=== PATIENT | male | born 1970 | race Caucasian/White ===

== ENCOUNTER 2018-01-11 09:00 | Inpatient (IN) | payer MEDICAID ==
[~2018-01-11] VITALS: Ht 177.8 cm; Wt 68.2 kg
[2018-01-11] MEDS ORDERED: ketorolac trometh. 30mg/ml inj. IV ONE (09:05)
[2018-01-11] MEDS ORDERED: normal saline 1000ML IV soln IVB ONE (09:05)
[2018-01-11 09:39] LABS: BASOPHILS # (AUTO) 0.1 X10'3 (0-0.2); BASOPHILS % (AUTO) 0.2 % (0-1); EOSINOPHILS # (AUTO) 0.1 X10'3 (0-0.9); EOSINOPHILS % (AUTO) 0.2 % (0-6); HEMATOCRIT 37.8 % (42.0-52.0); HEMOGLOBIN 12.9 g/dl (14.0-17.9); LYMPHOCYTES # (AUTO) 0.6 X10'3 (1.1-4.8); LYMPHOCYTES % (AUTO) 1.7 % (21-51); MEAN CORPUSCULAR HEMOGLOBIN 29.9 PG (27.0-31.0); MEAN CORPUSCULAR HGB CONC 34.3 % (33.0-36.5); MEAN CORPUSCULAR VOLUME 87.3 FL (78-98); MEAN PLATELET VOLUME 7.2 FL (7.4-10.4); MONOCYTES # (AUTO) 0.4 X10'3 (0-0.9); MONOCYTES % (AUTO) 1.4 % (2-12); NEUTROPHILS # (AUTO) 30.8 X10'3 (1.8-7.7); NEUTROPHILS % (AUTO) 96.5 % (42-75); PLATELET COUNT 354 X10'3 (140-440); RED BLOOD COUNT 4.33 X10'6 (4.70-6.10); RED CELL DISTRIBUTION WIDTH 15.1 % (11.5-14.5)
[2018-01-11] MEDS ORDERED: levoFLOXACIN-Levaquin 750MG/D5 150 ML IV ONE (09:50)
[2018-01-11] MEDS ORDERED: vancomycin/NS 1 GM ADD-VANTAGE 250 ML IV ONE (09:50)
[2018-01-11 09:53] LABS: INR 1.1 INR; PARTIAL THROMBOPLASTIN TIME 28 SECONDS (22-32); PROTHROMBIN TIME 11.4 SECONDS (9.0-12.0)
[2018-01-11 09:55] LABS: ANISOCYTOSIS 1+; PLATELET ESTIMATE NORMAL; TOTAL CELLS COUNTED 100
[2018-01-11 10:02] LABS: D-DIMER 2.15 MG/L FEU (0-0.50)
[2018-01-11 10:03] LABS: ALANINE AMINOTRANSFERASE 71 U/L (12-78); ALBUMIN 1.8 G/DL (3.4-5.0); ALBUMIN/GLOBULIN RATIO 0.3 (1.1-1.5); ALKALINE PHOSPHATASE 318 IU/L (46-116); ANION GAP 11 (8-16); ASPARTATE AMINO TRANSFERASE 58 U/L (10-37); BILIRUBIN,TOTAL 1.1 MG/DL (0.1-1.0); BLOOD UREA NITROGEN 12 MG/DL (7-18); BUN/CREATININE RATIO 13.5 (5.4-32.0); CHLORIDE 97 MMOL/L (99-107); CREATININE 0.89 MG/DL (0.60-1.10); GLUCOSE 96 MG/DL (70-104); MAGNESIUM 1.7 MG/DL (1.5-2.4); POTASSIUM 3.7 MMOL/L (3.5-5.1); SODIUM 135 MMOL/L (135-145); TOTAL CARBON DIOXIDE 26.9 MMOL/L (24-32); TOTAL PROTEIN 7.1 G/DL (6.4-8.2); eGFR > 90 ML/MIN
[2018-01-11] MEDS ORDERED: iohexol 350MG/ML 100ml bottle IV ONE (10:48)
[2018-01-11 11:14] LABS: URINE AMPHETAMINE SCREEN POSITIVE (Neg); URINE BARBITUATE SCREEN NEGATIVE (Neg); URINE BENZODIAZEPINES SCREEN NEGATIVE (Neg); URINE CANNABINOID SCREEN POSITIVE (Neg); URINE COCAINE SCREEN NEGATIVE (Neg); URINE METHADONE SCREEN NEGATIVE (Neg); URINE OPIATE SCREEN NEGATIVE (Neg); URINE PHENCYCLIDINE SCREEN NEGATIVE (Neg)
[2018-01-11] MEDS ORDERED: potassium Cl 20 mEq SR tablet PO PRN ×2 (11:35)
[2018-01-11] MEDS ORDERED: magnesium 4gm in 100ml NS 100 ML IV PRN (11:35)
[2018-01-11] MEDS ORDERED: potassium Cl 40MEQ/NS 500ml 500 ML IV PRN ×2 (11:35)
[2018-01-11] MEDS ORDERED: HYDROcodone/acetaminophen 5mg/325mg tablet PO PRN (11:35)
[2018-01-11] MEDS ORDERED: magnesium Cl slow-release 64mg tablet PO PRN (11:35)
[2018-01-11] MEDS ORDERED: magnesium hydroxide 30ml (MOM) UD suspension PO PRN (11:35)
[2018-01-11] MEDS ORDERED: mag hydrox/Alum hydrox/simeth 30ml oral suspension PO PRN (11:35)
[2018-01-11] MEDS ORDERED: ondansetron/PF 4mg/2ml inj IV PRN (11:35)
[2018-01-11] MEDS ORDERED: acetaminophen 325mg tablet PO PRN (11:35)
[2018-01-11] MEDS ORDERED: magnesium 2GM in 50ml NS 50 ML IV PRN (11:35)
[2018-01-11] MEDS ORDERED: bisacodyl 10mg suppository rectal RC PRN (11:35)
[2018-01-11] MEDS: ipratropium/albuterol 3ml nebule NEB SCH ×4 (12:04→23:30)
[2018-01-11] MEDS ORDERED: NO HOME MEDS (12:10)
[2018-01-11] MEDS ORDERED: LIDOcaine 1.5% w/epinephrine 1:200,000 5ml ampul IJ ONE (12:50)
[2018-01-11] MEDS: benzonatate 100mg capsule PO SCH ×2 (13:24→20:13)
[2018-01-11] MEDS: potassium Cl 20mEq in NS 1,000 ML IV SCH ×2 (15:52→21:33)
[2018-01-11] MEDS: HYDROcodone/acetaminophen 10/325mg tab PO PRN ×2 (18:09→23:43)
[2018-01-11 19:05] VITALS: BP 121/71
[2018-01-11] MEDS: vancomycin/NS 1 GM ADD-VANTAGE 250 ML IV SCH (20:13)
[2018-01-11] MEDS: docusate sod 100mg capsule PO SCH (20:14)
[2018-01-11] MEDS: lactobacillus rhamnosus 10,000 MMU CELLS/CAPSULE PO SCH (20:14)
[2018-01-12] VITALS: BP 107/73
[2018-01-12] MEDS: ipratropium/albuterol 3ml nebule NEB SCH ×5 (03:37→23:00)
[2018-01-12] MEDS: vancomycin/NS 1 GM ADD-VANTAGE 250 ML IV SCH (04:10)
[2018-01-12 05:31] LABS: BASOPHILS % (AUTO) 0 % (0-1); EOSINOPHILS # (AUTO) 0.2 X10'3 (0-0.9); EOSINOPHILS % (AUTO) 0.8 % (0-6); HEMATOCRIT 33.4 % (42.0-52.0); HEMOGLOBIN 11.5 g/dl (14.0-17.9); LYMPHOCYTES # (AUTO) 1.2 X10'3 (1.1-4.8); LYMPHOCYTES % (AUTO) 5.1 % (21-51); MEAN CORPUSCULAR HEMOGLOBIN 30.1 PG (27.0-31.0); MEAN CORPUSCULAR HGB CONC 34.4 % (33.0-36.5); MEAN CORPUSCULAR VOLUME 87.2 FL (78-98); MEAN PLATELET VOLUME 7.6 FL (7.4-10.4); MONOCYTES # (AUTO) 0.7 X10'3 (0-0.9); MONOCYTES % (AUTO) 3.1 % (2-12); NEUTROPHILS # (AUTO) 21.1 X10'3 (1.8-7.7); PLATELET COUNT 305 X10'3 (140-440); RED BLOOD COUNT 3.82 X10'6 (4.70-6.10); RED CELL DISTRIBUTION WIDTH 15.1 % (11.5-14.5); WHITE BLOOD COUNT 23.2 X10'3 (4.5-11.0)
[2018-01-12 05:39] LABS: ALANINE AMINOTRANSFERASE 53 U/L (12-78); ALBUMIN 1.5 G/DL (3.4-5.0); ALBUMIN/GLOBULIN RATIO 0.3 (1.1-1.5); ALKALINE PHOSPHATASE 273 IU/L (46-116); ANION GAP 8 (8-16); ASPARTATE AMINO TRANSFERASE 45 U/L (10-37); BILIRUBIN,TOTAL 0.8 MG/DL (0.1-1.0); BLOOD UREA NITROGEN 15 MG/DL (7-18); BUN/CREATININE RATIO 15.6 (5.4-32.0); CALCIUM 8.6 MG/DL (8.5-10.1); CHLORIDE 103 MMOL/L (99-107); CREATININE 0.96 MG/DL (0.60-1.10); GLUCOSE 116 MG/DL (70-104); POTASSIUM 3.7 MMOL/L (3.5-5.1); SODIUM 140 MMOL/L (135-145); TOTAL CARBON DIOXIDE 28.9 MMOL/L (24-32); TOTAL PROTEIN 6.4 G/DL (6.4-8.2); eGFR 84 ML/MIN
[2018-01-12 07:00] VITALS: BP 133/91
[2018-01-12] MEDS: K and/or MAG REPLACEMENT MC SCH (08:00)
[2018-01-12] MEDS: nicotine 14mg patch - 24hr TD SCH (08:00)
[2018-01-12] MEDS: lactobacillus rhamnosus 10,000 MMU CELLS/CAPSULE PO SCH ×2 (08:28→21:03)
[2018-01-12] MEDS: docusate sod 100mg capsule PO SCH ×2 (08:28→21:03)
[2018-01-12] MEDS: benzonatate 100mg capsule PO SCH ×3 (08:29→21:03)
[2018-01-12] MEDS: HYDROcodone/acetaminophen 10/325mg tab PO PRN ×3 (08:29→22:12)
[2018-01-12] MEDS: potassium Cl 20mEq in NS 1,000 ML IV SCH ×3 (08:30→21:04)
[2018-01-12] MEDS: enoxaparin 40mg/0.4ml syringe SUBCUT SCH (08:33)
[2018-01-12] MEDS: levoFLOXACIN-Levaquin 750MG/D5 150 ML IV SCH (08:37)
[2018-01-12 11:00] VITALS: BP 134/88
[2018-01-12] MEDS ORDERED: VANCOMYCIN LEVEL IV NR (11:30)
[2018-01-12] MEDS: vancomycin inj 1,250 MG in normal saline 250ml IV soln 250 ML IV SCH ×2 (13:45→21:06)
[2018-01-12 20:00] VITALS: BP 147/90
[2018-01-13] VITALS: BP 134/87
[2018-01-13] MEDS: ipratropium/albuterol 3ml nebule NEB SCH ×6 (03:00→23:00)
[2018-01-13] MEDS: HYDROcodone/acetaminophen 10/325mg tab PO PRN ×4 (03:13→19:26)
[2018-01-13] MEDS: vancomycin inj 1,250 MG in normal saline 250ml IV soln 250 ML IV SCH ×3 (05:13→23:09)
[2018-01-13 05:24] LABS: BASOPHILS # (AUTO) 0.1 X10'3 (0-0.2); BASOPHILS % (AUTO) 0.7 % (0-1); EOSINOPHILS # (AUTO) 0.3 X10'3 (0-0.9); EOSINOPHILS % (AUTO) 1.6 % (0-6); HEMATOCRIT 32.6 % (42.0-52.0); HEMOGLOBIN 11.2 g/dl (14.0-17.9); LYMPHOCYTES # (AUTO) 1.1 X10'3 (1.1-4.8); LYMPHOCYTES % (AUTO) 6.2 % (21-51); MEAN CORPUSCULAR HEMOGLOBIN 29.8 PG (27.0-31.0); MEAN CORPUSCULAR HGB CONC 34.3 % (33.0-36.5); MEAN CORPUSCULAR VOLUME 86.8 FL (78-98); MEAN PLATELET VOLUME 7.4 FL (7.4-10.4); MONOCYTES # (AUTO) 0.8 X10'3 (0-0.9); MONOCYTES % (AUTO) 4.8 % (2-12); NEUTROPHILS # (AUTO) 14.9 X10'3 (1.8-7.7); NEUTROPHILS % (AUTO) 86.7 % (42-75); PLATELET COUNT 404 X10'3 (140-440); RED BLOOD COUNT 3.76 X10'6 (4.70-6.10); RED CELL DISTRIBUTION WIDTH 15.5 % (11.5-14.5); WHITE BLOOD COUNT 17.1 X10'3 (4.5-11.0)
[2018-01-13 05:46] LABS: ALANINE AMINOTRANSFERASE 58 U/L (12-78); ALBUMIN 1.4 G/DL (3.4-5.0); ALBUMIN/GLOBULIN RATIO 0.3 (1.1-1.5); ALKALINE PHOSPHATASE 247 IU/L (46-116); ANION GAP 7 (8-16); ASPARTATE AMINO TRANSFERASE 53 U/L (10-37); BILIRUBIN,TOTAL 0.5 MG/DL (0.1-1.0); BLOOD UREA NITROGEN 17 MG/DL (7-18); BUN/CREATININE RATIO 18.5 (5.4-32.0); CALCIUM 8.4 MG/DL (8.5-10.1); CHLORIDE 104 MMOL/L (99-107); CREATININE 0.92 MG/DL (0.60-1.10); GLUCOSE 97 MG/DL (70-104); MAGNESIUM 1.9 MG/DL (1.5-2.4); POTASSIUM 4.1 MMOL/L (3.5-5.1); SODIUM 137 MMOL/L (135-145); TOTAL CARBON DIOXIDE 26.2 MMOL/L (24-32); eGFR 88 ML/MIN
[2018-01-13 07:00] VITALS: BP 142/95
[2018-01-13] MEDS: K and/or MAG REPLACEMENT MC SCH (08:00)
[2018-01-13] MEDS: nicotine 14mg patch - 24hr TD SCH (08:00)
[2018-01-13] MEDS: lactobacillus rhamnosus 10,000 MMU CELLS/CAPSULE PO SCH ×2 (09:23→19:26)
[2018-01-13] MEDS: benzonatate 100mg capsule PO SCH ×3 (09:23→23:09)
[2018-01-13] MEDS: docusate sod 100mg capsule PO SCH ×2 (09:24→19:26)
[2018-01-13] MEDS: levoFLOXACIN-Levaquin 750MG/D5 150 ML IV SCH (09:24)
[2018-01-13] MEDS: enoxaparin 40mg/0.4ml syringe SUBCUT SCH (09:25)
[2018-01-13] MEDS ORDERED: FLU VACC QS2017-18 36MOS UP/PF 60 MCG/0.5 ML SYRINGE IMVAC ONE (10:00)
[2018-01-13 11:08] VITALS: BP 144/83
[2018-01-13] MEDS ORDERED: VANCOMYCIN LEVEL IV NR (12:30)
[2018-01-13] MEDS: potassium Cl 20mEq in NS 1,000 ML IV SCH (13:23)
[2018-01-13 20:00] VITALS: BP 153/80
[2018-01-14] VITALS: BP 151/91
[2018-01-14] MEDS: HYDROcodone/acetaminophen 10/325mg tab PO PRN ×5 (00:37→21:10)
[2018-01-14] MEDS: potassium Cl 20mEq in NS 1,000 ML IV SCH ×3 (02:44→19:33)
[2018-01-14] MEDS: ipratropium/albuterol 3ml nebule NEB SCH (03:00)
[2018-01-14 05:28] LABS: BASOPHILS % (AUTO) 0.1 % (0-1); EOSINOPHILS # (AUTO) 0.4 X10'3 (0-0.9); EOSINOPHILS % (AUTO) 2.3 % (0-6); HEMATOCRIT 33.8 % (42.0-52.0); HEMOGLOBIN 11.8 g/dl (14.0-17.9); LYMPHOCYTES # (AUTO) 1.2 X10'3 (1.1-4.8); MEAN CORPUSCULAR HEMOGLOBIN 29.9 PG (27.0-31.0); MEAN CORPUSCULAR VOLUME 85.4 FL (78-98); MONOCYTES # (AUTO) 0.8 X10'3 (0-0.9); MONOCYTES % (AUTO) 4.9 % (2-12); NEUTROPHILS # (AUTO) 14.3 X10'3 (1.8-7.7); NEUTROPHILS % (AUTO) 85.7 % (42-75); PLATELET COUNT 478 X10'3 (140-440); RED BLOOD COUNT 3.96 X10'6 (4.70-6.10); RED CELL DISTRIBUTION WIDTH 14.9 % (11.5-14.5); WHITE BLOOD COUNT 16.7 X10'3 (4.5-11.0)
[2018-01-14] MEDS: vancomycin inj 1,250 MG in normal saline 250ml IV soln 250 ML IV SCH ×3 (05:36→21:11)
[2018-01-14 05:47] LABS: ALANINE AMINOTRANSFERASE 68 U/L (12-78); ALBUMIN 1.5 G/DL (3.4-5.0); ALBUMIN/GLOBULIN RATIO 0.3 (1.1-1.5); ALKALINE PHOSPHATASE 232 IU/L (46-116); ANION GAP 5 (8-16); ASPARTATE AMINO TRANSFERASE 55 U/L (10-37); BILIRUBIN,TOTAL 0.5 MG/DL (0.1-1.0); BLOOD UREA NITROGEN 11 MG/DL (7-18); BUN/CREATININE RATIO 13.1 (5.4-32.0); CALCIUM 8.6 MG/DL (8.5-10.1); CHLORIDE 105 MMOL/L (99-107); CREATININE 0.84 MG/DL (0.60-1.10); GLUCOSE 91 MG/DL (70-104); MAGNESIUM 2.1 MG/DL (1.5-2.4); POTASSIUM 4.2 MMOL/L (3.5-5.1); SODIUM 138 MMOL/L (135-145); TOTAL CARBON DIOXIDE 27.9 MMOL/L (24-32); TOTAL PROTEIN 6.2 G/DL (6.4-8.2); eGFR > 90 ML/MIN
[2018-01-14 07:00] VITALS: BP 151/90
[2018-01-14] MEDS: nicotine 14mg patch - 24hr TD SCH (08:00)
[2018-01-14] MEDS: K and/or MAG REPLACEMENT MC SCH (08:00)
[2018-01-14] MEDS: benzonatate 100mg capsule PO SCH ×3 (08:34→21:08)
[2018-01-14] MEDS: docusate sod 100mg capsule PO SCH ×2 (08:34→21:09)
[2018-01-14] MEDS: lactobacillus rhamnosus 10,000 MMU CELLS/CAPSULE PO SCH ×2 (08:34→21:08)
[2018-01-14] MEDS: enoxaparin 40mg/0.4ml syringe SUBCUT SCH (08:34)
[2018-01-14] MEDS: levoFLOXACIN-Levaquin 750MG/D5 150 ML IV SCH (08:34)
[2018-01-14] MEDS ORDERED: LORazepam 2 mg/ml vial IV PRN (09:30)
[2018-01-14] MEDS ORDERED: ipratropium/albuterol 3ml nebule NEB PRN (09:35)
[2018-01-14 11:00] VITALS: BP 125/78
[2018-01-14 20:00] VITALS: BP 125/81
[2018-01-15] VITALS: BP 136/79
[2018-01-15] MEDS: potassium Cl 20mEq in NS 1,000 ML IV SCH (05:43)
[2018-01-15] MEDS: vancomycin inj 1,250 MG in normal saline 250ml IV soln 250 ML IV SCH ×3 (05:43→21:11)
[2018-01-15] MEDS: HYDROcodone/acetaminophen 10/325mg tab PO PRN ×4 (05:43→21:15)
[2018-01-15 05:55] LABS: BASOPHILS % (AUTO) 0.2 % (0-1); EOSINOPHILS # (AUTO) 0.4 X10'3 (0-0.9); EOSINOPHILS % (AUTO) 3.4 % (0-6); HEMATOCRIT 38.1 % (42.0-52.0); LYMPHOCYTES # (AUTO) 1.1 X10'3 (1.1-4.8); LYMPHOCYTES % (AUTO) 9.3 % (21-51); MEAN CORPUSCULAR HEMOGLOBIN 29.5 PG (27.0-31.0); MEAN CORPUSCULAR HGB CONC 34.2 % (33.0-36.5); MEAN CORPUSCULAR VOLUME 86.3 FL (78-98); MEAN PLATELET VOLUME 6.9 FL (7.4-10.4); MONOCYTES # (AUTO) 0.7 X10'3 (0-0.9); MONOCYTES % (AUTO) 5.6 % (2-12); NEUTROPHILS # (AUTO) 9.8 X10'3 (1.8-7.7); NEUTROPHILS % (AUTO) 81.5 % (42-75); PLATELET COUNT 553 X10'3 (140-440); RED BLOOD COUNT 4.41 X10'6 (4.70-6.10); RED CELL DISTRIBUTION WIDTH 15.3 % (11.5-14.5); WHITE BLOOD COUNT 12.1 X10'3 (4.5-11.0)
[2018-01-15 06:16] LABS: ALANINE AMINOTRANSFERASE 66 U/L (12-78); ALBUMIN 1.7 G/DL (3.4-5.0); ALBUMIN/GLOBULIN RATIO 0.3 (1.1-1.5); ALKALINE PHOSPHATASE 208 IU/L (46-116); ANION GAP 6 (8-16); ASPARTATE AMINO TRANSFERASE 49 U/L (10-37); BILIRUBIN,TOTAL 0.4 MG/DL (0.1-1.0); BLOOD UREA NITROGEN 12 MG/DL (7-18); BUN/CREATININE RATIO 12.9 (5.4-32.0); CALCIUM 8.8 MG/DL (8.5-10.1); CHLORIDE 104 MMOL/L (99-107); CREATININE 0.93 MG/DL (0.60-1.10); GLUCOSE 86 MG/DL (70-104); MAGNESIUM 2.1 MG/DL (1.5-2.4); POTASSIUM 4.7 MMOL/L (3.5-5.1); SODIUM 139 MMOL/L (135-145); TOTAL CARBON DIOXIDE 29.1 MMOL/L (24-32); TOTAL PROTEIN 7.1 G/DL (6.4-8.2); eGFR 87 ML/MIN
[2018-01-15 07:06] VITALS: BP 122/79
[2018-01-15] MEDS: nicotine 14mg patch - 24hr TD SCH (08:00)
[2018-01-15] MEDS: K and/or MAG REPLACEMENT MC SCH (08:00)
[2018-01-15] MEDS: benzonatate 100mg capsule PO SCH ×3 (08:30→21:15)
[2018-01-15] MEDS: lactobacillus rhamnosus 10,000 MMU CELLS/CAPSULE PO SCH ×2 (08:30→21:15)
[2018-01-15] MEDS: levoFLOXACIN-Levaquin 750MG/D5 150 ML IV SCH (08:30)
[2018-01-15] MEDS: docusate sod 100mg capsule PO SCH ×2 (08:31→21:14)
[2018-01-15] MEDS: enoxaparin 40mg/0.4ml syringe SUBCUT SCH (08:31)
[2018-01-15 10:54] LABS: PLATELET ESTIMATE NORMAL; TOTAL CELLS COUNTED 100
[2018-01-15 11:07] VITALS: BP 126/76
[2018-01-15] MEDS ORDERED: LORazepam 0.5 MG tablet PO PRN (12:50)
[2018-01-15 20:00] VITALS: BP 148/82
[2018-01-16] VITALS: BP 121/70
[2018-01-16] MEDS: vancomycin inj 1,250 MG in normal saline 250ml IV soln 250 ML IV SCH ×3 (05:57→23:21)
[2018-01-16 06:03] LABS: BASOPHILS % (AUTO) 0.2 % (0-1); EOSINOPHILS # (AUTO) 0.5 X10'3 (0-0.9); EOSINOPHILS % (AUTO) 3.8 % (0-6); HEMATOCRIT 35.1 % (42.0-52.0); HEMOGLOBIN 12.1 g/dl (14.0-17.9); LYMPHOCYTES # (AUTO) 1.3 X10'3 (1.1-4.8); LYMPHOCYTES % (AUTO) 9.4 % (21-51); MEAN CORPUSCULAR HEMOGLOBIN 29.9 PG (27.0-31.0); MEAN CORPUSCULAR HGB CONC 34.4 % (33.0-36.5); MEAN CORPUSCULAR VOLUME 86.9 FL (78-98); MEAN PLATELET VOLUME 6.7 FL (7.4-10.4); MONOCYTES # (AUTO) 0.8 X10'3 (0-0.9); NEUTROPHILS % (AUTO) 80.6 % (42-75); PLATELET COUNT 622 X10'3 (140-440); RED BLOOD COUNT 4.03 X10'6 (4.70-6.10); RED CELL DISTRIBUTION WIDTH 15.3 % (11.5-14.5); WHITE BLOOD COUNT 13.6 X10'3 (4.5-11.0)
[2018-01-16 06:28] LABS: ALANINE AMINOTRANSFERASE 63 U/L (12-78); ALBUMIN 1.7 G/DL (3.4-5.0); ALBUMIN/GLOBULIN RATIO 0.3 (1.1-1.5); ALKALINE PHOSPHATASE 180 IU/L (46-116); ANION GAP 5 (8-16); ASPARTATE AMINO TRANSFERASE 43 U/L (10-37); BILIRUBIN,TOTAL 0.3 MG/DL (0.1-1.0); BLOOD UREA NITROGEN 13 MG/DL (7-18); BUN/CREATININE RATIO 13.5 (5.4-32.0); CALCIUM 8.7 MG/DL (8.5-10.1); CHLORIDE 104 MMOL/L (99-107); CREATININE 0.96 MG/DL (0.60-1.10); GLUCOSE 92 MG/DL (70-104); MAGNESIUM 2.3 MG/DL (1.5-2.4); POTASSIUM 4.4 MMOL/L (3.5-5.1); SODIUM 139 MMOL/L (135-145); TOTAL CARBON DIOXIDE 30.1 MMOL/L (24-32); TOTAL PROTEIN 6.6 G/DL (6.4-8.2); eGFR 84 ML/MIN
[2018-01-16 07:16] VITALS: BP 127/73
[2018-01-16] MEDS: nicotine 14mg patch - 24hr TD SCH (08:00)
[2018-01-16] MEDS: K and/or MAG REPLACEMENT MC SCH (08:00)
[2018-01-16 08:09] LABS: ANISOCYTOSIS 1+; PLATELET ESTIMATE INCREASED; TOTAL CELLS COUNTED 100
[2018-01-16] MEDS: enoxaparin 40mg/0.4ml syringe SUBCUT SCH (08:50)
[2018-01-16] MEDS: lactobacillus rhamnosus 10,000 MMU CELLS/CAPSULE PO SCH ×2 (08:50→19:33)
[2018-01-16] MEDS: docusate sod 100mg capsule PO SCH ×2 (08:50→19:33)
[2018-01-16] MEDS: benzonatate 100mg capsule PO SCH ×3 (08:50→23:21)
[2018-01-16] MEDS: levoFLOXACIN-Levaquin 750MG/D5 150 ML IV SCH (08:50)
[2018-01-16] MEDS: HYDROcodone/acetaminophen 10/325mg tab PO PRN ×4 (08:54→23:21)
[2018-01-16 11:55] VITALS: BP 109/64
[2018-01-16] MEDS: bisacodyl 10mg suppository rectal RC STA ×2 (12:45→12:57)
[2018-01-16 18:00] VITALS: BP 136/88
[2018-01-17] VITALS: BP 133/77
[2018-01-17] MEDS: vancomycin inj 1,250 MG in normal saline 250ml IV soln 250 ML IV SCH ×3 (05:16→21:03)
[2018-01-17] MEDS: HYDROcodone/acetaminophen 10/325mg tab PO PRN ×3 (05:20→21:03)
[2018-01-17 05:25] LABS: BASOPHILS % (AUTO) 0.2 % (0-1); EOSINOPHILS # (AUTO) 0.5 X10'3 (0-0.9); EOSINOPHILS % (AUTO) 4.3 % (0-6); HEMATOCRIT 37.8 % (42.0-52.0); HEMOGLOBIN 12.9 g/dl (14.0-17.9); LYMPHOCYTES # (AUTO) 1.3 X10'3 (1.1-4.8); MEAN CORPUSCULAR HEMOGLOBIN 29.6 PG (27.0-31.0); MEAN CORPUSCULAR HGB CONC 34.2 % (33.0-36.5); MEAN CORPUSCULAR VOLUME 86.6 FL (78-98); MEAN PLATELET VOLUME 6.6 FL (7.4-10.4); MONOCYTES # (AUTO) 0.7 X10'3 (0-0.9); NEUTROPHILS # (AUTO) 9.5 X10'3 (1.8-7.7); NEUTROPHILS % (AUTO) 78.5 % (42-75); PLATELET COUNT 732 X10'3 (140-440); RED BLOOD COUNT 4.37 X10'6 (4.70-6.10); RED CELL DISTRIBUTION WIDTH 15.3 % (11.5-14.5); WHITE BLOOD COUNT 12.1 X10'3 (4.5-11.0)
[2018-01-17 06:00] VITALS: BP 113/70
[2018-01-17 06:06] LABS: ALANINE AMINOTRANSFERASE 63 U/L (12-78); ALBUMIN/GLOBULIN RATIO 0.4 (1.1-1.5); ALKALINE PHOSPHATASE 184 IU/L (46-116); ANION GAP 8 (8-16); ASPARTATE AMINO TRANSFERASE 48 U/L (10-37); BILIRUBIN,TOTAL 0.4 MG/DL (0.1-1.0); BLOOD UREA NITROGEN 16 MG/DL (7-18); CALCIUM 9.2 MG/DL (8.5-10.1); CHLORIDE 102 MMOL/L (99-107); CREATININE 0.84 MG/DL (0.60-1.10); GLUCOSE 87 MG/DL (70-104); MAGNESIUM 2.4 MG/DL (1.5-2.4); POTASSIUM 4.8 MMOL/L (3.5-5.1); SODIUM 139 MMOL/L (135-145); TOTAL CARBON DIOXIDE 29.2 MMOL/L (24-32); TOTAL PROTEIN 7.4 G/DL (6.4-8.2); eGFR > 90 ML/MIN
[2018-01-17] MEDS: K and/or MAG REPLACEMENT MC SCH (08:00)
[2018-01-17] MEDS: nicotine 14mg patch - 24hr TD SCH (08:00)
[2018-01-17] MEDS: levoFLOXACIN-Levaquin 750MG/D5 150 ML IV SCH (08:43)
[2018-01-17] MEDS: docusate sod 100mg capsule PO SCH ×2 (08:43→21:03)
[2018-01-17] MEDS: lactobacillus rhamnosus 10,000 MMU CELLS/CAPSULE PO SCH ×2 (08:43→21:02)
[2018-01-17] MEDS: benzonatate 100mg capsule PO SCH ×3 (08:43→21:03)
[2018-01-17] MEDS: enoxaparin 40mg/0.4ml syringe SUBCUT SCH (08:44)
[2018-01-17 10:00] VITALS: BP 108/46
[2018-01-17 18:00] VITALS: BP 114/58
[2018-01-18] VITALS: BP 111/66
[2018-01-18] MEDS: vancomycin inj 1,250 MG in normal saline 250ml IV soln 250 ML IV SCH (04:51)
[2018-01-18 05:39] LABS: BASOPHILS % (AUTO) 0.3 % (0-1); EOSINOPHILS # (AUTO) 0.5 X10'3 (0-0.9); EOSINOPHILS % (AUTO) 4.5 % (0-6); HEMATOCRIT 37.3 % (42.0-52.0); HEMOGLOBIN 12.8 g/dl (14.0-17.9); LYMPHOCYTES # (AUTO) 1.5 X10'3 (1.1-4.8); LYMPHOCYTES % (AUTO) 13.1 % (21-51); MEAN CORPUSCULAR HEMOGLOBIN 29.9 PG (27.0-31.0); MEAN CORPUSCULAR HGB CONC 34.3 % (33.0-36.5); MEAN CORPUSCULAR VOLUME 87.2 FL (78-98); MEAN PLATELET VOLUME 6.5 FL (7.4-10.4); MONOCYTES # (AUTO) 0.8 X10'3 (0-0.9); MONOCYTES % (AUTO) 7.4 % (2-12); NEUTROPHILS # (AUTO) 8.3 X10'3 (1.8-7.7); NEUTROPHILS % (AUTO) 74.7 % (42-75); PLATELET COUNT 678 X10'3 (140-440); RED BLOOD COUNT 4.28 X10'6 (4.70-6.10); RED CELL DISTRIBUTION WIDTH 15.5 % (11.5-14.5); WHITE BLOOD COUNT 11.1 X10'3 (4.5-11.0)
[2018-01-18 05:59] LABS: ALANINE AMINOTRANSFERASE 57 U/L (12-78); ALBUMIN 2.1 G/DL (3.4-5.0); ALBUMIN/GLOBULIN RATIO 0.4 (1.1-1.5); ALKALINE PHOSPHATASE 162 IU/L (46-116); ANION GAP 7 (8-16); ASPARTATE AMINO TRANSFERASE 39 U/L (10-37); BILIRUBIN,TOTAL 0.3 MG/DL (0.1-1.0); BLOOD UREA NITROGEN 14 MG/DL (7-18); BUN/CREATININE RATIO 13.5 (5.4-32.0); CALCIUM 9.3 MG/DL (8.5-10.1); CHLORIDE 103 MMOL/L (99-107); CREATININE 1.04 MG/DL (0.60-1.10); GLUCOSE 94 MG/DL (70-104); MAGNESIUM 2.4 MG/DL (1.5-2.4); POTASSIUM 4.7 MMOL/L (3.5-5.1); SODIUM 138 MMOL/L (135-145); TOTAL CARBON DIOXIDE 28.4 MMOL/L (24-32); TOTAL PROTEIN 7.4 G/DL (6.4-8.2); eGFR 76 ML/MIN
[2018-01-18 07:00] VITALS: BP 125/78
[2018-01-18] MEDS: K and/or MAG REPLACEMENT MC SCH (08:00)
[2018-01-18] MEDS: nicotine 14mg patch - 24hr TD SCH (08:00)
[2018-01-18] MEDS: benzonatate 100mg capsule PO SCH ×2 (10:07→13:47)
[2018-01-18] MEDS: lactobacillus rhamnosus 10,000 MMU CELLS/CAPSULE PO SCH (10:07)
[2018-01-18] MEDS: enoxaparin 40mg/0.4ml syringe SUBCUT SCH (10:08)
[2018-01-18] MEDS: docusate sod 100mg capsule PO SCH (10:08)
[2018-01-18] MEDS: levoFLOXACIN-Levaquin 750MG/D5 150 ML IV SCH (10:09)
[2018-01-18] MEDS ORDERED: ACET1TAB12 PO (11:44)
[2018-01-18] MEDS ORDERED: LEVO500T2 PO (11:44)
[2018-01-18] MEDS ORDERED: ALBU8.5H8 IH (11:44)
[2018-01-18 12:00] VITALS: BP 125/70
== END 2018-01-18 14:40 | disposition home or self-care (01) | DRG 710 ==
LOC: ER 09:00 → ED HOLD 10:37 → EDBEDREQTM 18:23 → EDBEDREQ 18:23 → SUR 3N 19:01
PROVIDERS: ADMIT Internal Medicine; ATTEND Family Medicine
PROC: 0S9C0ZZ Drainage of Right Knee Joint, Open Approach (ICD-10-PCS; principal; 2018-01-11)
PROC: B3201ZZ Computerized Tomography (CT Scan) of Thoracic Aorta using Low Osmolar Contrast (ICD-10-PCS; 2018-01-11)
DX: A41.9 Sepsis, unspecified organism (principal); E43 Unspecified severe protein-calorie malnutrition; J13 Pneumonia due to Streptococcus pneumoniae; L03.115 Cellulitis of right lower limb; R06.03 Acute respiratory distress; L02.415 Cutaneous abscess of right lower limb; G89.29 Other chronic pain; M54.9 Dorsalgia, unspecified; F17.210 Nicotine dependence, cigarettes, uncomplicated; F15.10 Other stimulant abuse, uncomplicated; F12.90 Cannabis use, unspecified, uncomplicated; Z98.1 Arthrodesis status; Z56.0 Unemployment, unspecified; Z59.0 Homelessness; Z86.14 Personal history of Methicillin resistant Staphylococcus aureus infection; Z68.21 Body mass index [BMI] 21.0-21.9, adult; Z23 Encounter for immunization; Z71.6 Tobacco abuse counseling; Z71.51 Drug abuse counseling and surveillance of drug abuser
CPT/HCPCS: 36415; 71045; 71275; 80053; 80202; 80305; 83605; 83735; 83880; 84145; 84484; 85025; 85379; 85610; 85730; 87040; 87070; 87077; 87186; 93005; 93306; 94640; 94760; 96361; 96374; 99285; A4649; A6196; A6212; A6446; A6449; J1650; J1885; J1956; J3370; J3490; J7030; Q2037; Q9967

== ENCOUNTER 2018-05-16 14:27 | Inpatient (IN) | payer MEDICAID, OTHER ==
[~2018-05-16] VITALS: Ht 177.8 cm; Wt 62.0 kg
[~2018-05-16 14:27] MED LIST: ACET1TAB12 PO; ALBU8.5H8 IH; NO HOME MEDS
[2018-05-16 15:23] LABS: BASOPHILS % (AUTO) 0.1 % (0-1); EOSINOPHILS % (AUTO) 0.2 % (0-6); HEMATOCRIT 41.4 % (42.0-52.0); LYMPHOCYTES # (AUTO) 1.5 X10'3 (1.1-4.8); LYMPHOCYTES % (AUTO) 9.6 % (21-51); MEAN CORPUSCULAR HEMOGLOBIN 29.1 PG (27.0-31.0); MEAN CORPUSCULAR HGB CONC 33.8 % (33.0-36.5); MEAN CORPUSCULAR VOLUME 85.9 FL (78-98); MEAN PLATELET VOLUME 6.9 FL (7.4-10.4); MONOCYTES # (AUTO) 1.5 X10'3 (0-0.9); MONOCYTES % (AUTO) 9.2 % (2-12); NEUTROPHILS # (AUTO) 12.9 X10'3 (1.8-7.7); NEUTROPHILS % (AUTO) 80.9 % (42-75); PLATELET COUNT 324 X10'3 (140-440); RED BLOOD COUNT 4.82 X10'6 (4.70-6.10); RED CELL DISTRIBUTION WIDTH 13.7 % (11.5-14.5); WHITE BLOOD COUNT 15.9 X10'3 (4.5-11.0)
[2018-05-16 15:37] LABS: ALANINE AMINOTRANSFERASE 72 U/L (12-78); ALBUMIN 2.9 G/DL (3.4-5.0); ALBUMIN/GLOBULIN RATIO 0.6 (1.1-1.5); ALKALINE PHOSPHATASE 100 IU/L (46-116); ANION GAP 6 (8-16); ASPARTATE AMINO TRANSFERASE 33 U/L (10-37); BILIRUBIN,TOTAL 0.7 MG/DL (0.1-1.0); BLOOD UREA NITROGEN 7 MG/DL (7-18); BUN/CREATININE RATIO 6.7 (5.4-32.0); CALCIUM 9.3 MG/DL (8.5-10.1); CHLORIDE 98 MMOL/L (99-107); CREATININE 1.05 MG/DL (0.60-1.10); GLUCOSE 120 MG/DL (70-104); POTASSIUM 3.4 MMOL/L (3.5-5.1); SODIUM 134 MMOL/L (135-145); TOTAL CARBON DIOXIDE 30.5 MMOL/L (24-32); TOTAL PROTEIN 7.6 G/DL (6.4-8.2); eGFR 75 ML/MIN
[2018-05-16] MEDS ORDERED: HYDROcodone/acetaminophen 10/325mg tab PO ONE (15:40)
[2018-05-16] MEDS ORDERED: normal saline 1000ML IV soln IVB ONE (15:45)
[2018-05-16] MEDS ORDERED: vancomycin/NS 1 GM ADD-VANTAGE 250 ML IV ONE (16:40)
[2018-05-16] MEDS ORDERED: CefTRIAXone/D5W-Rocephin 1gm 50 ML IV ONE (16:40)
[2018-05-16] MEDS ORDERED: gadopentetate dimeglumine 7.5 MMOL/15 ML syringe ONE (17:38)
[2018-05-16] MEDS ORDERED: LIDOcaine 1% 30ml preserv. free vial IJ ONE (19:35)
[2018-05-16] MEDS: normal saline 1000ml 1,000 ML IV SCH (21:26)
[2018-05-16] MEDS ORDERED: ondansetron/PF 4mg/2ml inj IV PRN (21:30)
[2018-05-16] MEDS ORDERED: HYDROmorphone 1 mg/ml syringe IV PRN (21:30)
[2018-05-16] MEDS ORDERED: acetaminophen 325mg tablet PO PRN (21:30)
[2018-05-16] MEDS ORDERED: vancomycin/NS 1 GM ADD-VANTAGE 250 ML IV SCH (22:00)
[2018-05-16 23:30] VITALS: BP 157/92
[2018-05-16] MEDS: HYDROmorphone 1 mg/ml syringe IV PRN (23:30)
[2018-05-17 06:00] VITALS: BP 141/82
[2018-05-17 06:31] LABS: BASOPHILS # (AUTO) 0.2 X10'3 (0-0.2); BASOPHILS % (AUTO) 1.1 % (0-1); EOSINOPHILS # (AUTO) 0.1 X10'3 (0-0.9); EOSINOPHILS % (AUTO) 0.7 % (0-6); HEMATOCRIT 38.2 % (42.0-52.0); HEMOGLOBIN 13.3 g/dl (14.0-17.9); LYMPHOCYTES # (AUTO) 1.2 X10'3 (1.1-4.8); LYMPHOCYTES % (AUTO) 7.7 % (21-51); MEAN CORPUSCULAR HEMOGLOBIN 29.6 PG (27.0-31.0); MEAN CORPUSCULAR HGB CONC 34.7 % (33.0-36.5); MEAN CORPUSCULAR VOLUME 85.2 FL (78-98); MEAN PLATELET VOLUME 7.3 FL (7.4-10.4); MONOCYTES # (AUTO) 1.2 X10'3 (0-0.9); NEUTROPHILS # (AUTO) 12.8 X10'3 (1.8-7.7); NEUTROPHILS % (AUTO) 82.5 % (42-75); PLATELET COUNT 276 X10'3 (140-440); RED BLOOD COUNT 4.48 X10'6 (4.70-6.10); RED CELL DISTRIBUTION WIDTH 13.9 % (11.5-14.5); WHITE BLOOD COUNT 15.5 X10'3 (4.5-11.0)
[2018-05-17] MEDS: normal saline 1000ml 1,000 ML IV SCH ×3 (06:32→19:20)
[2018-05-17 06:59] LABS: ALANINE AMINOTRANSFERASE 67 U/L (12-78); ALBUMIN 2.5 G/DL (3.4-5.0); ALBUMIN/GLOBULIN RATIO 0.5 (1.1-1.5); ALKALINE PHOSPHATASE 99 IU/L (46-116); ANION GAP 5 (8-16); ASPARTATE AMINO TRANSFERASE 31 U/L (10-37); BILIRUBIN,TOTAL 0.5 MG/DL (0.1-1.0); BLOOD UREA NITROGEN 4 MG/DL (7-18); BUN/CREATININE RATIO 4.5 (5.4-32.0); CALCIUM 8.6 MG/DL (8.5-10.1); CHLORIDE 101 MMOL/L (99-107); CREATININE 0.89 MG/DL (0.60-1.10); GLUCOSE 111 MG/DL (70-104); POTASSIUM 3.8 MMOL/L (3.5-5.1); SODIUM 133 MMOL/L (135-145); TOTAL CARBON DIOXIDE 26.7 MMOL/L (24-32); TOTAL PROTEIN 7.1 G/DL (6.4-8.2); eGFR > 90 ML/MIN
[2018-05-17 07:50] VITALS: BP 141/82
[2018-05-17] MEDS ORDERED: vancomycin/NS 1 GM ADD-VANTAGE 250 ML IV SCH ×2 (08:00→16:00)
[2018-05-17] MEDS: CefTRIAXone 2gm/D5W 50ml 50 ML IV SCH (08:08)
[2018-05-17] MEDS ORDERED: LIDOcaine 1% (10mg/ml) 2ml vial ONE ×3 (09:39→10:08)
[2018-05-17 10:00] VITALS: BP 135/81
[2018-05-17] MEDS: HYDROmorphone 1 mg/ml syringe IV PRN (11:00)
[2018-05-17] MEDS ORDERED: iohexol 300mg/ml 100ml inj. ONE (11:23)
[2018-05-17] MEDS ORDERED: magnesium 1gm/100ml D5W IVPB 100 ML IV PRN (12:20)
[2018-05-17] MEDS ORDERED: potassium Cl 20 mEq SR tablet PO PRN ×2 (12:20)
[2018-05-17] MEDS ORDERED: magnesium 4gm in 100ml NS 100 ML IV PRN (12:20)
[2018-05-17] MEDS ORDERED: magnesium Cl slow-release 64mg tablet PO PRN (12:20)
[2018-05-17] MEDS ORDERED: potassium Cl 40MEQ/NS 500ml 500 ML IV PRN ×2 (12:20)
[2018-05-17] MEDS ORDERED: morphine 2 MG/ML inj. syringe IV PRN (12:20)
[2018-05-17] MEDS: vancomycin/NS 1 GM ADD-VANTAGE 250 ML IV SCH ×2 (16:18→23:27)
[2018-05-17 18:00] VITALS: BP 161/95
[2018-05-17 18:31] LABS: URINE AMPHETAMINE SCREEN POSITIVE (Neg); URINE BARBITUATE SCREEN NEGATIVE (Neg); URINE BENZODIAZEPINES SCREEN NEGATIVE (Neg); URINE CANNABINOID SCREEN NEGATIVE (Neg); URINE COCAINE SCREEN NEGATIVE (Neg); URINE METHADONE SCREEN NEGATIVE (Neg); URINE OPIATE SCREEN POSITIVE (Neg); URINE PHENCYCLIDINE SCREEN NEGATIVE (Neg)
[2018-05-17] MEDS: HYDROcodone/acetaminophen 10/325mg tab PO PRN (19:23)
[2018-05-17] MEDS: lactobacillus rhamnosus 10,000 MMU CELLS/CAPSULE PO SCH (20:00)
[2018-05-17 22:00] VITALS: BP 110/62
[2018-05-18 05:00] VITALS: BP 165/93
[2018-05-18] MEDS ORDERED: VANCOMYCIN LEVEL IV NR (07:30)
[2018-05-18] MEDS: enoxaparin 40mg/0.4ml syringe SUBCUT SCH (08:00)
[2018-05-18 08:09] LABS: BASOPHILS % (AUTO) 0.3 % (0-1); EOSINOPHILS # (AUTO) 0.1 X10'3 (0-0.9); EOSINOPHILS % (AUTO) 1.1 % (0-6); HEMATOCRIT 42.8 % (42.0-52.0); HEMOGLOBIN 14.6 g/dl (14.0-17.9); LYMPHOCYTES # (AUTO) 0.9 X10'3 (1.1-4.8); LYMPHOCYTES % (AUTO) 7.3 % (21-51); MEAN CORPUSCULAR HEMOGLOBIN 28.9 PG (27.0-31.0); MEAN CORPUSCULAR VOLUME 84.9 FL (78-98); MEAN PLATELET VOLUME 6.6 FL (7.4-10.4); MONOCYTES # (AUTO) 0.9 X10'3 (0-0.9); MONOCYTES % (AUTO) 6.9 % (2-12); NEUTROPHILS # (AUTO) 10.9 X10'3 (1.8-7.7); NEUTROPHILS % (AUTO) 84.4 % (42-75); PLATELET COUNT 333 X10'3 (140-440); RED BLOOD COUNT 5.04 X10'6 (4.70-6.10); RED CELL DISTRIBUTION WIDTH 13.9 % (11.5-14.5); WHITE BLOOD COUNT 12.9 X10'3 (4.5-11.0)
[2018-05-18 08:23] LABS: ALANINE AMINOTRANSFERASE 60 U/L (12-78); ALBUMIN 2.5 G/DL (3.4-5.0); ALBUMIN/GLOBULIN RATIO 0.5 (1.1-1.5); ALKALINE PHOSPHATASE 106 IU/L (46-116); ANION GAP 9 (8-16); ASPARTATE AMINO TRANSFERASE 33 U/L (10-37); BILIRUBIN,TOTAL 0.5 MG/DL (0.1-1.0); BLOOD UREA NITROGEN 6 MG/DL (7-18); BUN/CREATININE RATIO 7.9 (5.4-32.0); CHLORIDE 99 MMOL/L (99-107); CREATININE 0.76 MG/DL (0.60-1.10); GLUCOSE 127 MG/DL (70-104); MAGNESIUM 1.9 MG/DL (1.5-2.4); SODIUM 134 MMOL/L (135-145); TOTAL CARBON DIOXIDE 26.5 MMOL/L (24-32); TOTAL PROTEIN 7.5 G/DL (6.4-8.2); VANCOMYCIN,TROUGH 9.8 UG/ML (6.0-14.0); eGFR > 90 ML/MIN
[2018-05-18] MEDS: lactobacillus rhamnosus 10,000 MMU CELLS/CAPSULE PO SCH ×2 (08:42→20:01)
[2018-05-18] MEDS: CefTRIAXone 2gm/D5W 50ml 50 ML IV SCH (08:43)
[2018-05-18] MEDS: HYDROcodone/acetaminophen 10/325mg tab PO PRN ×2 (08:50→18:32)
[2018-05-18 10:00] VITALS: BP 157/95
[2018-05-18] MEDS: vancomycin inj 1,250 MG in normal saline 250ml IV soln 250 ML IV SCH ×2 (10:29→18:28)
[2018-05-18] MEDS: normal saline 1000ml 1,000 ML IV SCH ×2 (13:26→18:29)
[2018-05-18] MEDS: clindamycin 600mg/D5W 50ml 50 ML IV SCH ×2 (14:22→20:01)
[2018-05-18] MEDS ORDERED: amLODIPine 5mg tablet PO ONE (14:55)
[2018-05-18 18:00] VITALS: BP 160/103
[2018-05-18 22:00] VITALS: BP 147/83
[2018-05-19] MEDS: vancomycin inj 1,250 MG in normal saline 250ml IV soln 250 ML IV SCH ×3 (00:12→19:31)
[2018-05-19] MEDS: clindamycin 600mg/D5W 50ml 50 ML IV SCH ×2 (02:17→08:04)
[2018-05-19] MEDS: normal saline 1000ml 1,000 ML IV SCH ×2 (02:17→19:35)
[2018-05-19 05:00] VITALS: BP 124/81
[2018-05-19 06:18] LABS: BASOPHILS % (AUTO) 0.3 % (0-1); EOSINOPHILS # (AUTO) 0.4 X10'3 (0-0.9); EOSINOPHILS % (AUTO) 3.1 % (0-6); HEMATOCRIT 42.7 % (42.0-52.0); HEMOGLOBIN 14.4 g/dl (14.0-17.9); LYMPHOCYTES # (AUTO) 1.2 X10'3 (1.1-4.8); LYMPHOCYTES % (AUTO) 10.1 % (21-51); MEAN CORPUSCULAR HEMOGLOBIN 28.7 PG (27.0-31.0); MEAN CORPUSCULAR HGB CONC 33.8 % (33.0-36.5); MEAN CORPUSCULAR VOLUME 84.7 FL (78-98); MEAN PLATELET VOLUME 7.2 FL (7.4-10.4); MONOCYTES # (AUTO) 1.2 X10'3 (0-0.9); MONOCYTES % (AUTO) 9.5 % (2-12); NEUTROPHILS # (AUTO) 9.5 X10'3 (1.8-7.7); PLATELET COUNT 341 X10'3 (140-440); RED BLOOD COUNT 5.04 X10'6 (4.70-6.10); RED CELL DISTRIBUTION WIDTH 13.6 % (11.5-14.5); WHITE BLOOD COUNT 12.3 X10'3 (4.5-11.0)
[2018-05-19 06:19] LABS: ALANINE AMINOTRANSFERASE 54 U/L (12-78); ALBUMIN 2.3 G/DL (3.4-5.0); ALBUMIN/GLOBULIN RATIO 0.5 (1.1-1.5); ALKALINE PHOSPHATASE 104 IU/L (46-116); ANION GAP 8 (8-16); ASPARTATE AMINO TRANSFERASE 33 U/L (10-37); BILIRUBIN,TOTAL 0.3 MG/DL (0.1-1.0); BLOOD UREA NITROGEN 12 MG/DL (7-18); CHLORIDE 101 MMOL/L (99-107); GLUCOSE 100 MG/DL (70-104); MAGNESIUM 2.1 MG/DL (1.5-2.4); POTASSIUM 4.2 MMOL/L (3.5-5.1); SODIUM 136 MMOL/L (135-145); TOTAL CARBON DIOXIDE 27.3 MMOL/L (24-32); TOTAL PROTEIN 7.2 G/DL (6.4-8.2); eGFR > 90 ML/MIN
[2018-05-19] MEDS: amLODIPine 5mg tablet PO SCH (08:00)
[2018-05-19] MEDS: enoxaparin 40mg/0.4ml syringe SUBCUT SCH (08:00)
[2018-05-19] MEDS: lactobacillus rhamnosus 10,000 MMU CELLS/CAPSULE PO SCH ×2 (08:04→19:31)
[2018-05-19] MEDS ORDERED: VANCOMYCIN LEVEL IV NR (08:30)
[2018-05-19] MEDS: CefTRIAXone 2gm/D5W 50ml 50 ML IV SCH (08:58)
[2018-05-19] MEDS: HYDROcodone/acetaminophen 10/325mg tab PO PRN (08:58)
[2018-05-19] MEDS ORDERED: vancomycin inj 1,250 MG in normal saline 250ml IV soln 250 ML IV SCH (17:51)
[2018-05-19 18:00] VITALS: BP 134/82
[2018-05-19 22:00] VITALS: BP 139/81
[2018-05-20] MEDS: vancomycin inj 1,250 MG in normal saline 250ml IV soln 250 ML IV SCH ×3 (03:04→19:36)
[2018-05-20] MEDS: HYDROcodone/acetaminophen 10/325mg tab PO PRN ×2 (03:07→12:17)
[2018-05-20 05:00] VITALS: BP 159/85
[2018-05-20 05:22] LABS: BASOPHILS # (AUTO) 0.1 X10'3 (0-0.2); BASOPHILS % (AUTO) 0.5 % (0-1); EOSINOPHILS # (AUTO) 0.6 X10'3 (0-0.9); EOSINOPHILS % (AUTO) 4.8 % (0-6); HEMOGLOBIN 14.5 g/dl (14.0-17.9); LYMPHOCYTES # (AUTO) 1.4 X10'3 (1.1-4.8); LYMPHOCYTES % (AUTO) 11.9 % (21-51); MEAN CORPUSCULAR HEMOGLOBIN 28.8 PG (27.0-31.0); MEAN CORPUSCULAR HGB CONC 33.7 % (33.0-36.5); MEAN CORPUSCULAR VOLUME 85.4 FL (78-98); MEAN PLATELET VOLUME 6.9 FL (7.4-10.4); MONOCYTES # (AUTO) 0.9 X10'3 (0-0.9); MONOCYTES % (AUTO) 8.1 % (2-12); NEUTROPHILS # (AUTO) 8.5 X10'3 (1.8-7.7); NEUTROPHILS % (AUTO) 74.7 % (42-75); PLATELET COUNT 354 X10'3 (140-440); RED BLOOD COUNT 5.03 X10'6 (4.70-6.10); RED CELL DISTRIBUTION WIDTH 13.9 % (11.5-14.5); WHITE BLOOD COUNT 11.4 X10'3 (4.5-11.0)
[2018-05-20] MEDS: normal saline 1000ml 1,000 ML IV SCH ×2 (05:26→19:36)
[2018-05-20 05:43] LABS: ALANINE AMINOTRANSFERASE 58 U/L (12-78); ALBUMIN 2.4 G/DL (3.4-5.0); ALBUMIN/GLOBULIN RATIO 0.5 (1.1-1.5); ALKALINE PHOSPHATASE 108 IU/L (46-116); ANION GAP 6 (8-16); ASPARTATE AMINO TRANSFERASE 37 U/L (10-37); BILIRUBIN,TOTAL 0.2 MG/DL (0.1-1.0); BLOOD UREA NITROGEN 11 MG/DL (7-18); BUN/CREATININE RATIO 11.8 (5.4-32.0); CALCIUM 9.3 MG/DL (8.5-10.1); CHLORIDE 103 MMOL/L (99-107); CREATININE 0.93 MG/DL (0.60-1.10); MAGNESIUM 2.1 MG/DL (1.5-2.4); POTASSIUM 4.1 MMOL/L (3.5-5.1); SODIUM 135 MMOL/L (135-145); TOTAL CARBON DIOXIDE 25.7 MMOL/L (24-32); TOTAL PROTEIN 7.3 G/DL (6.4-8.2); eGFR 87 ML/MIN
[2018-05-20 05:48] LABS: GLUCOSE 104 MG/DL (70-104)
[2018-05-20 07:34] VITALS: BP 146/96
[2018-05-20] MEDS: amLODIPine 5mg tablet PO SCH (07:36)
[2018-05-20] MEDS: lactobacillus rhamnosus 10,000 MMU CELLS/CAPSULE PO SCH ×2 (07:36→19:36)
[2018-05-20] MEDS: enoxaparin 40mg/0.4ml syringe SUBCUT SCH (07:36)
[2018-05-20 10:00] VITALS: BP 136/84
[2018-05-20 18:00] VITALS: BP 118/84
[2018-05-20 22:38] VITALS: BP 134/84
[2018-05-21] MEDS: vancomycin inj 1,250 MG in normal saline 250ml IV soln 250 ML IV SCH ×3 (04:01→19:22)
[2018-05-21 05:44] LABS: BASOPHILS # (AUTO) 0.1 X10'3 (0-0.2); BASOPHILS % (AUTO) 0.8 % (0-1); EOSINOPHILS # (AUTO) 0.5 X10'3 (0-0.9); EOSINOPHILS % (AUTO) 6.1 % (0-6); HEMATOCRIT 44.1 % (42.0-52.0); HEMOGLOBIN 14.9 g/dl (14.0-17.9); LYMPHOCYTES # (AUTO) 1.5 X10'3 (1.1-4.8); LYMPHOCYTES % (AUTO) 16.9 % (21-51); MEAN CORPUSCULAR HEMOGLOBIN 28.9 PG (27.0-31.0); MEAN CORPUSCULAR HGB CONC 33.9 % (33.0-36.5); MEAN CORPUSCULAR VOLUME 85.2 FL (78-98); MEAN PLATELET VOLUME 6.6 FL (7.4-10.4); MONOCYTES # (AUTO) 0.7 X10'3 (0-0.9); MONOCYTES % (AUTO) 8.4 % (2-12); NEUTROPHILS # (AUTO) 5.8 X10'3 (1.8-7.7); NEUTROPHILS % (AUTO) 67.8 % (42-75); PLATELET COUNT 383 X10'3 (140-440); RED BLOOD COUNT 5.18 X10'6 (4.70-6.10); RED CELL DISTRIBUTION WIDTH 13.8 % (11.5-14.5); WHITE BLOOD COUNT 8.6 X10'3 (4.5-11.0)
[2018-05-21 06:02] LABS: ALANINE AMINOTRANSFERASE 73 U/L (12-78); ALBUMIN 2.5 G/DL (3.4-5.0); ALBUMIN/GLOBULIN RATIO 0.5 (1.1-1.5); ALKALINE PHOSPHATASE 98 IU/L (46-116); ANION GAP 6 (8-16); ASPARTATE AMINO TRANSFERASE 50 U/L (10-37); BILIRUBIN,TOTAL 0.3 MG/DL (0.1-1.0); BLOOD UREA NITROGEN 9 MG/DL (7-18); BUN/CREATININE RATIO 9.8 (5.4-32.0); CALCIUM 9.3 MG/DL (8.5-10.1); CHLORIDE 103 MMOL/L (99-107); CREATININE 0.92 MG/DL (0.60-1.10); GLUCOSE 95 MG/DL (70-104); MAGNESIUM 2.1 MG/DL (1.5-2.4); POTASSIUM 4.6 MMOL/L (3.5-5.1); SODIUM 136 MMOL/L (135-145); TOTAL CARBON DIOXIDE 26.7 MMOL/L (24-32); TOTAL PROTEIN 7.4 G/DL (6.4-8.2); eGFR 88 ML/MIN
[2018-05-21 06:11] VITALS: BP 149/95
[2018-05-21] MEDS: enoxaparin 40mg/0.4ml syringe SUBCUT SCH (07:21)
[2018-05-21] MEDS: lactobacillus rhamnosus 10,000 MMU CELLS/CAPSULE PO SCH ×2 (07:21→19:21)
[2018-05-21] MEDS: amLODIPine 5mg tablet PO SCH (07:21)
[2018-05-21 10:10] VITALS: BP 131/84
[2018-05-21] MEDS: HYDROcodone/acetaminophen 10/325mg tab PO PRN (13:15)
[2018-05-21] MEDS: normal saline 1000ml 1,000 ML IV SCH (16:45)
[2018-05-21 18:00] VITALS: BP 117/63
[2018-05-21 22:00] VITALS: BP 121/64
[2018-05-22] MEDS: vancomycin inj 1,250 MG in normal saline 250ml IV soln 250 ML IV SCH ×3 (03:45→20:11)
[2018-05-22 06:00] VITALS: BP 148/95
[2018-05-22] MEDS: enoxaparin 40mg/0.4ml syringe SUBCUT SCH (08:05)
[2018-05-22] MEDS: lactobacillus rhamnosus 10,000 MMU CELLS/CAPSULE PO SCH ×2 (08:05→20:11)
[2018-05-22] MEDS: amLODIPine 5mg tablet PO SCH (08:05)
[2018-05-22 10:00] VITALS: BP 126/72
[2018-05-22] MEDS: normal saline 1000ml 1,000 ML IV SCH (12:21)
[2018-05-22 16:00] LABS: HSV 1 PCR Positive (Negative); HSV 2 PCR Negative (Negative)
[2018-05-22 18:00] VITALS: BP 129/85
[2018-05-22] MEDS ORDERED: valacyclovir 500mg tablet PO SCH (20:00)
[2018-05-23] MEDS: valacyclovir 500mg tablet PO SCH ×4 (02:38→19:11)
[2018-05-23] MEDS: vancomycin inj 1,250 MG in normal saline 250ml IV soln 250 ML IV SCH ×3 (03:55→19:11)
[2018-05-23 06:00] VITALS: BP 132/82
[2018-05-23] MEDS: amLODIPine 5mg tablet PO SCH (08:06)
[2018-05-23] MEDS: lactobacillus rhamnosus 10,000 MMU CELLS/CAPSULE PO SCH ×2 (08:06→19:11)
[2018-05-23] MEDS: enoxaparin 40mg/0.4ml syringe SUBCUT SCH (08:07)
[2018-05-23] MEDS: normal saline 1000ml 1,000 ML IV SCH (09:36)
[2018-05-23 10:00] VITALS: BP 107/61
[2018-05-23 18:00] VITALS: BP 105/66
[2018-05-23 18:56] VITALS: BP 107/61
[2018-05-23 22:00] VITALS: BP 132/72
[2018-05-24] MEDS: vancomycin inj 1,250 MG in normal saline 250ml IV soln 250 ML IV SCH ×3 (05:06→19:21)
[2018-05-24 06:00] VITALS: BP 127/83
[2018-05-24] MEDS: normal saline 1000ml 1,000 ML IV SCH ×2 (08:01→19:31)
[2018-05-24] MEDS: amLODIPine 5mg tablet PO SCH (09:12)
[2018-05-24] MEDS: lactobacillus rhamnosus 10,000 MMU CELLS/CAPSULE PO SCH ×2 (09:12→19:21)
[2018-05-24] MEDS: valacyclovir 500mg tablet PO SCH ×2 (09:12→19:21)
[2018-05-24] MEDS: enoxaparin 40mg/0.4ml syringe SUBCUT SCH (09:13)
[2018-05-24 10:00] VITALS: BP 142/77
[2018-05-24 18:00] VITALS: BP 131/77
[2018-05-24 22:00] VITALS: BP 114/61
[2018-05-25] MEDS: vancomycin inj 1,250 MG in normal saline 250ml IV soln 250 ML IV SCH ×3 (04:00→19:41)
[2018-05-25 06:00] VITALS: BP 137/91
[2018-05-25] MEDS: amLODIPine 5mg tablet PO SCH (09:33)
[2018-05-25] MEDS: valacyclovir 500mg tablet PO SCH ×2 (09:33→19:41)
[2018-05-25] MEDS: lactobacillus rhamnosus 10,000 MMU CELLS/CAPSULE PO SCH ×2 (09:33→19:41)
[2018-05-25] MEDS: enoxaparin 40mg/0.4ml syringe SUBCUT SCH (09:34)
[2018-05-25 10:00] VITALS: BP 125/65
[2018-05-25 17:00] VITALS: BP 130/75
[2018-05-25] MEDS: mupirocin 2% nasal ointment 1gm UD NS SCH (19:41)
[2018-05-25] MEDS: normal saline 1000ml 1,000 ML IV SCH (19:42)
[2018-05-25] MEDS ORDERED: mupirocin 2% ointment 22GM TP SCH (20:00)
[2018-05-25 22:00] VITALS: BP 131/78
[2018-05-26] MEDS: vancomycin inj 1,250 MG in normal saline 250ml IV soln 250 ML IV SCH ×3 (03:19→19:55)
[2018-05-26 06:00] VITALS: BP 103/56
[2018-05-26] MEDS: amLODIPine 5mg tablet PO SCH (08:00)
[2018-05-26] MEDS: lactobacillus rhamnosus 10,000 MMU CELLS/CAPSULE PO SCH ×2 (08:01→19:55)
[2018-05-26] MEDS: nicotine 14mg patch - 24hr TD SCH (08:01)
[2018-05-26] MEDS: valacyclovir 500mg tablet PO SCH ×2 (08:01→19:55)
[2018-05-26] MEDS: mupirocin 2% nasal ointment 1gm UD NS SCH ×2 (08:01→19:55)
[2018-05-26] MEDS: enoxaparin 40mg/0.4ml syringe SUBCUT SCH (08:02)
[2018-05-26 10:00] VITALS: BP 109/71
[2018-05-26 18:00] VITALS: BP 116/74
[2018-05-26] MEDS ORDERED: VANCOMYCIN LEVEL IV ONE (19:30)
[2018-05-26 22:00] VITALS: BP 129/71
[2018-05-27] MEDS: vancomycin inj 1,250 MG in normal saline 250ml IV soln 250 ML IV SCH ×2 (03:32→12:39)
[2018-05-27 06:00] VITALS: BP 115/64
[2018-05-27] MEDS: lactobacillus rhamnosus 10,000 MMU CELLS/CAPSULE PO SCH (07:24)
[2018-05-27] MEDS: valacyclovir 500mg tablet PO SCH (07:24)
[2018-05-27] MEDS: nicotine 14mg patch - 24hr TD SCH (07:24)
[2018-05-27] MEDS: amLODIPine 5mg tablet PO SCH (07:24)
[2018-05-27] MEDS: enoxaparin 40mg/0.4ml syringe SUBCUT SCH (07:25)
[2018-05-27] MEDS: mupirocin 2% nasal ointment 1gm UD NS SCH (07:25)
[2018-05-27 10:00] VITALS: BP 123/76
[2018-05-27] MEDS ORDERED: AMLO5TAB16 PO (16:06)
[2018-05-27] MEDS ORDERED: VALA500T37 PO (16:06)
[2018-05-27] MEDS ORDERED: CLIN300C85 PO (16:06)
[2018-05-27] MEDS ORDERED: NICO-631 TD (16:06)
== END 2018-05-27 17:11 | disposition home or self-care (01) | DRG 710 ==
LOC: ER 14:28 → ED HOLD 21:26 → ORTHO 4S 22:56
PROVIDERS: ADMIT Internal Medicine; ATTEND Family Medicine
PROC: 0J9K0ZZ Drainage of Left Hand Subcutaneous Tissue and Fascia, Open Approach (ICD-10-PCS; principal; 2018-05-17)
DX: A41.02 Sepsis due to Methicillin resistant Staphylococcus aureus (principal); E44.1 Mild protein-calorie malnutrition; L03.211 Cellulitis of face; L02.512 Cutaneous abscess of left hand; I10 Essential (primary) hypertension; F19.10 Other psychoactive substance abuse, uncomplicated; K13.0 Diseases of lips; L03.114 Cellulitis of left upper limb; F15.10 Other stimulant abuse, uncomplicated; M54.9 Dorsalgia, unspecified; F17.200 Nicotine dependence, unspecified, uncomplicated; F12.10 Cannabis abuse, uncomplicated; Z60.2 Problems related to living alone; Z56.0 Unemployment, unspecified; Z59.0 Homelessness; Z68.1 Body mass index [BMI] 19.9 or less, adult; Z22.322 Carrier or suspected carrier of Methicillin resistant Staphylococcus aureus
CPT/HCPCS: 36415; 70487; 73140; 73220; 80053; 80202; 80305; 83735; 85025; 87040; 87070; 87077; 87186; 87529; 93306; 96365; 96366; 96368; 99285; A4649; A6196; A6222; A6223; A6255; A6446; A6449; A9579; J0696; J1170; J1650; J3370; J3490; J7030; Q9967

== ENCOUNTER 2018-10-04 20:43 | Emergency (ER) | payer MEDICAID, OTHER ==
[~2018-10-04] VITALS: Ht 175.3 cm; Wt 69.7 kg
[~2018-10-04 20:43] MED LIST changes: -ACET1TAB12 PO; -ALBU8.5H8 IH; +AMLO5TAB16 PO; +CLIN300C85 PO; +NICO-631 TD; -NO HOME MEDS; +VALA500T37 PO
[2018-10-04 21:09] VITALS: BP 138/78
[2018-10-04] MEDS ORDERED: DOXYCYCLINE 100MG CAPSULE PO STA (21:26)
[2018-10-04] MEDS ORDERED: ketorolac trometh inj. 60 MG/2 ML VIAL IM ONE (21:30)
[2018-10-04] MEDS ORDERED: cephalexin 250mg capsule PO ONE (21:30)
[2018-10-04] MEDS ORDERED: morphine 4 MG/ML inj SYRINge IM ONE (21:30)
[2018-10-04] MEDS ORDERED: ondansetron 4mg rapidly disintigrating tab PO ONE (21:30)
[2018-10-04] MEDS ORDERED: CEPH250T PO (22:43)
[2018-10-04] MEDS ORDERED: DOXY100C43 PO (22:43)
== END 2018-10-04 23:00 | disposition home or self-care (01) ==
LOC: ER 20:44
DX: L02.01 Cutaneous abscess of face (principal); F12.10 Cannabis abuse, uncomplicated; F15.10 Other stimulant abuse, uncomplicated; Z59.0 Homelessness; Z56.0 Unemployment, unspecified; Z79.899 Other long term (current) drug therapy
CPT/HCPCS: 10060; 87070; 87077; 87186; 96372; 99284; J1885; J2270

== ENCOUNTER 2019-05-17 13:55 | Emergency (ER) | payer MEDICAID, OTHER ==
[~2019-05-17] VITALS: Ht 177.8 cm; Wt 65.0 kg
[~2019-05-17 13:55] MED LIST changes: +CLIN-96 PO; -CLIN300C85 PO
[2019-05-17 13:57] VITALS: BP 134/82
[2019-05-17] MEDS ORDERED: TETanus/Pertussis (Acell)/Diphther VAC/PF (Tdap-Adult) 0.5ml syringe IM ONE (15:20)
[2019-05-17] MEDS ORDERED: LIDOcaine 1% w/epiNEPHrine 1:200,000 30ml vial IM ONE (15:20)
[2019-05-17] MEDS ORDERED: CEPH-571 PO (16:17)
[2019-05-17] MEDS ORDERED: IBUP-1984 PO (16:17)
--- NOTE | 2019-05-17 16:37 | NUR ---
catheterization laboratory technician dressed wound to rt hand and left finger with nonadherent and coban, gave pt dressings for home
== END 2019-05-17 16:38 | disposition home or self-care (01) ==
LOC: ER 13:55
DX: L02.511 Cutaneous abscess of right hand (principal); L02.512 Cutaneous abscess of left hand; F12.90 Cannabis use, unspecified, uncomplicated; F15.90 Other stimulant use, unspecified, uncomplicated; F10.99 Alcohol use, unspecified with unspecified alcohol-induced disorder; Z60.2 Problems related to living alone; Z59.0 Homelessness; Z56.0 Unemployment, unspecified; Z79.899 Other long term (current) drug therapy; Y90.9 Presence of alcohol in blood, level not specified
CPT/HCPCS: 10060; 26010; 90471; 99284